=== PATIENT | male | born 1945 | race Caucasian/White ===

== ENCOUNTER → 2024-09-01 | Outpatient (CLI) | payer OTHER, SELFPAY ==
--- NOTE | 2024-09-01 16:00 | XR_ITS ---
Examination: CT chest, without intravenous contrast. Sagittal and coronal 2-D reconstructions. Exam date and time: September 01, 2024 1606 hrs. Indications: CT chest 02/11/2024 10 mm pulmonary nodule left upper lobe 3 mm pulmonary nodule lingular segment CTDI:vol (mGy) 9.99 DLP: (mGycm) 357 Technique: Multiple 3.0 mm axial sections of the chest to been obtained. Bone and lung density settings are obtained. Sagittal and coronal 2-D reconstructions have been obtained. Low dose protocols were performed. One or more of the following dose reduction techniques were used; automated exposure control, adjustment of the mA and/or KV according to patient size, use of iterative reconstruction technique. Findings: Thoracic aortic calcification no aneurysmal patient Pulmonary artery segments are not enlarged Significant calcification left main left anterior descending left circumflex coronary arteries Stable 10 mm pulmonary nodule left upper lobe Stable 3 mm pulmonary nodule lingular segment No new pulmonary nodules Scarring in the lungs bilaterally No interval pneumonia No focal liver or splenic lesions Kidneys partially visualized no hydronephrosis Moderate osteopenia Impression: Stable pulmonary nodules compared with 02/11/2024, no new pulmonary nodules
== END | disposition home or self-care (01) ==
PROVIDERS: Referring Provider Nurse Practitioner Adult Health; Visit Provider Nurse Practitioner Adult Health
DX: R91.8 Other nonspecific abnormal finding of lung field (principal)
CPT/HCPCS: 71250

== ENCOUNTER 2025-01-25 01:26 | Observation (INO) | payer MEDICARE, OTHER, SELFPAY ==
[2025-01-25] VITALS (11 sets, daily range): BP systolic 114–165; BP diastolic 77–98; PULSE 57–99; RESP 15–19; TEMP 36.1–36.6; O2SAT 93–98; BMI 20.2; BMI 20.9
--- NOTE | 2025-01-25 01:38 | PC.NURSE ---
PT BROUGHT TO ER BY AMBULANCE, EMS REPORTED PT C/O RIGHT GROIN PAIN AND SWOLLEN TESTICLE. PT SAID THAT HE IS BEEN HAVING GROIN PAIN X 1 WEEK, BUT LAST NIGHT HE STARTED TO HAVE SWELLING TO HIS RIGHT TESTICLE.
--- NOTE | 2025-01-25 01:46 | EDNOTE_ITS ---
ED Male Genitalurinary RME/HPI General Chief complaint: Urogenital-Male Stated complaint: SWOLLEN TESTICLES Time Seen by Provider: 01/25/25 02:02 Arrival date/time: 01/25/25 01:26 RME / HPI RME / HPI Narrative: See [facility] for Dr. Charles's HPI documentation. Related Data Previous Rx's ?Medication ?Instructions ?Recorded albuterol sulfate 90 mcg/actuation 2 puff inhalation Q 6H PRN 09/06/23 aerosol inhaler (Ventolin HFA) shortness of breath or wheezing #8.5 grams fluticasone propionate 115 2 puff inhalation BID #12 g romy 09/06/23 mcg-salmeterol 21 mcg/actuation HFA inhaler (Advair HFA) Allergies Allergy/AdvReac Type Severity Reaction Status Date / Time No Known Allergies Allergy Verified 01/25/25 01:58 Review of Systems Review of Systems Systems Reviewed: All systems reviewed, normal except as documented Past Medical History Social History SMOKING STATUS: Former smoker ED Exam Narrative Physical exam: See [facility] for Dr. Charles's physical exam documentation. Course Quality Measures none Orders Category Date Time Status Saline [Insert IV] NOW Care 01/25/25 01:48 Active Straight [In and Out Catheter] X1 Care 01/25/25 01:48 Active Consult to General Surgery Stat Cons 01/25/25 04:[address] abdomen pelvis wo con Stat Exams 01/25/25 01:50 Taken US testicular Stat Exams 01/25/25 01:50 Ordered BNP [B-Type Natriuretic Peptide] Stat Lab 01/25/25 02:05 Completed Bilirubin,Direct Stat Lab 01/25/25 02:05 Completed Blood Culture (Lab) Stat Lab 01/25/25 02:02 Received CBC Stat Lab 01/25/25 02:05 Completed CMP [Comprehensive Metabolic Panel] Stat Lab 01/25/25 02:05 Completed CRP [C-Reactive Protein] Stat Lab 01/25/25 02:05 Completed ESR [Sed Rate (ESR)] Stat Lab 01/25/25 02:05 Completed Lactate (Lactic Acid) Stat Lab 01/25/25 02:05 Completed Magnesium Stat Lab 01/25/25 02:05 Completed Procalcitonin Stat Lab 01/25/25 02:05 Completed UA, C/S IF [Urinalysis, C/S if Indicated] Stat Lab 01/25/25 01:51 Ordered Morphine* Inj Med 01/25/25 01:48 Discontinued 4 mg IV X1 ONE Ondansetron Inj [Zofran Inj] Med 01/25/25 01:48 Discontinued 4 mg IVP X1 ONE Vital Signs Vital signs: Vital Signs Temperature 97.9 F 01/25/25 01:37 Pulse Rate 57 L 01/25/25 01:37 Respiratory Rate 18 01/25/25 01:37 Blood Pressure 162/83 H 01/25/25 01:37 Pulse Oximetry (%) 96 01/25/25 01:37 Oxygen Delivery Method Room Air 01/25/25 01:37 Urogenital - Male MDM Narrative MDM Narrative:: This section includes all my notes and documentations, including HPI, PE, and ED course. Cheko Charles MD HPI: 79yo male BIBA from home with right scrotal pain and swelling for the last several hours. Patient has had intermittent right scrotal pain for the few days. No previous abdominal surgeries. No other complaints reported. ROS: All negative except as documented in HPI. Physical Exam: General: Alert and oriented. No acute distress when remaining still. Eyes: Conjunctivae and lids clear. ENT: No nasal congestion. Neck: Supple. Heart: RRR. Lungs: No respiratory distress. Good air movement. No rhonchi, wheezing, rales. Abdomen: Soft and nontender. Skin: Warm and dry. Neuro: Alert and oriented X 3. Genitalia: Softball sized scrotum noted. Probable right inguinal hernia but difficult exam. I reviewed EMS notes. I reviewed all diagnostic test results. My review of the CT abdomen pelvis report is large right inguinal hernia. Blood tests are unremarkable. Urine specimen pending. Scrotal ultrasound reading pending. At this point, diagnoses include: Right inguinal hernia. Treatment here included: Morphine 4 mg IV Zofran 4 mg IV Patient remained stable. I discussed the case with our general surgeon, Dr. Dover. About the presentation and exam and diagnostics and treatments here. And possible need of further care in the hospital. Will come and evaluate the patient in the ER. Cheko Charles MD Patient data External records reviewed:: [facility] previous records (Per chart review, patient has no relevant previous ED visits.) Clinical information provided by:: patient Social determinants that could affect healthcare access:: none Patient has the following chronic illnesses:: none How is presenting disease/condition affected by chronic disease/condition?: no chronic disease Evaluation data The following diagnostics were reviewed and interpreted by me:: lab results and radiology exam(s) Lab and/or radiology exams considered but not ordered:: none Interpretation Summary: I reviewed all diagnostic test results. My review of the CT abdomen pelvis report is large right inguinal hernia. Blood tests are unremarkable. Urine specimen pending. Scrotal ultrasound reading pending. Medications / Prescriptions Medications or Prescriptions considered but not ordered:: none Medication administrations:: Medication Administration History Discontinued Medications Morphine Sulfate (Morphine Sulf Inj 4 Mg/Ml Vial) 4 mg IV X1 ONE Stop: 01/25/25 01:49 Last Admin: 01/25/25 03:16 Dose: 4 mg Documented By: CVL Comments: IV LOCK AT LEFT AC, PUSHED FOR 1 MIN. Ondansetron HCl (Ondansetron Inj 2 Mg/Ml Inj 2 Ml) 4 mg IVP X1 ONE; Protocol Stop: 01/25/25 01:49 Last Admin: 01/25/25 03:14 Dose: 4 mg Documented By: CVL Morphine, Zofran Consultations Consultation(s) initiated? (list below): Yes Consultation #1 (Physician, Specialty, Details): I discussed the case with our general surgeon. About the presentation and exam and diagnostics and treatments here. And possible need of further care in the hospital. Will come and evaluate the patient in the ER. Diagnosis Urogenital Male Differential Diagnosis: urinary tract infection, acute retention of urine and inguinal hernia Most likely diagnosis given after review of the tests above:: Right inguinal hernia Admission Indicated Admission indicated?: not indicated Explain why admission is indicated or not indicated:: I discussed the case with our general surgeon. About the presentation and exam and diagnostics and treatments here. And possible need of further care in the hospital. Will come and evaluate the patient in the ER. Admission Request Was there a request for admission?: No Disposition Plan Disposition Plan: other (specify) (Signed out to Dr. Longoria at 6 AM.) Discharge Plan Prescriptions/Referrals Prescriptions/Med Rec: No Action fluticasone propion-salmeterol [Advair HFA] 115-21 mcg/actuation HFA aerosol inhaler 2 puff inhalation BID Qty: 12 0RF albuterol sulfate [Ventolin HFA] 90 mcg/actuation HFA aerosol inhaler 2 puff inhalation Q6H PRN (Reason: shortness of breath or wheezing) Qty: 8.5 0RF Referrals: Emiliano Bethea MD [Primary Care Provider] - In 1 week Problem List Clinical Impression: Right inguinal hernia Patient/Caregiver Discharge Instructions Print Language: Irish
--- NOTE | 2025-01-25 01:50 | XR_ITS ---
Examination: Testicular sonography complete Technique: Grayscale sonographic images testes, assessment arterial inflow venous outflow Doppler spectral analysis carful analysis Date and time: January 25, 2025 0350 hrs. Indications: Testicular swelling beginning 2 days ago. Findings: Right testis 4.5 cm epididymis 1.1 cm Right inguinal hernia. Arterial flow testicle. No testicular mass. Left testis 4.6 cm epididymis not visualized. Arterial flow testicle. No testicular mass. Impression: No testicular torsion or testicular mass. Right inguinal hernia
--- NOTE | 2025-01-25 01:50 | XR_ITS ---
Examination: CT abdomen and pelvis without contrast. Coronal 3-D reconstructions. Sagittal 2-D reconstructions. Date and time of exam:January 25, 2025, 0257 hrs. Indications: Swollen testicles, erythema, abdominal and testicular pain today. CTDI: vol (mGy): 6.21. DLP: (mGycm): 385. Technique: Axial images of the abdomen have been obtained, 3 mm slice thickness Intravenous contrast material has not been administered. Low dose protocols were performed. One or more of the following dose reduction techniques were used; automated exposure control, adjustment of the mA and/or KV according to patient size, use of iterative reconstruction technique. Findings: No visualized liver or splenic lesion No gallstones. No pancreatic mass. Perinephric stranding. Mild edema in the mesentery. Normal appendix. 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 Mild prostatomegaly. Right inguinal hernia containing small bowel, but no incarcerated bowel or bowel obstruction. Severe osteopenia Impression: Right inguinal hernia containing small bowel, but no incarcerated bowel or bowel obstruction
[2025-01-25 02:16] LABS: Lactate (Lactic Acid) 1.0 mMol/L (0.4-2.0)
[2025-01-25 02:23] LABS: Basophils # (Auto) 0.1 Thou/mm3 (0.0-0.2); Basophils % (Auto) 1 % (0-2.5); Eosinophils # (Auto) 1.4 Thou/mm3 (0.0-0.5); Eosinophils % (Auto) 18 % (0-10); Hematocrit 42.7 % (41.0-53.0); Hemoglobin 14.2 g/dL (13.5-16.0); Immature Granulocytes Auto 0.02 Thou/mm3 (0.00-0.00); Lymphocytes # (Auto) 2.1 Thou/mm3 (1.0-4.8); Lymphocytes % (Auto) 28 % (10-50); Mean Corpuscular HGB Conc 33.3 g/dl (31.0-37.0); Mean Corpuscular Hemoglobin 35.0 pg (25.0-35.0); Mean Corpuscular Volume 105 fL (80-100); Monocytes # (Auto) 0.5 Thou/mm3 (0.0-0.8); Monocytes % (Auto) 7 % (0-12); Neutrophils # (Auto) 3.5 Thou/mm3 (1.8-7.7); Neutrophils % (Auto) 46 % (37-80); Nucleated Red Blood Cell # 0.00 Thou/mm3 (0.00-0.00); Nucleated Red Blood Cell % 0 /100 WBC (0); RDW Standard Deviation 50.4 fL (35.1-43.9); Red Blood Count 4.06 Miln/mm3 (4.50-5.90); White Blood Count 7.6 Thou/mm3 (3.8-10.6)
[2025-01-25 02:33] LABS: B-Type Natriuretic Peptide 29 pg/mL (0-100)
[2025-01-25 02:58] LABS: Alanine Aminotransferase 27 U/L (10-49); Albumin, Serum 4.3 gm/dL (3.4-4.8); Albumin/Globulin Ratio 2.4 (1.2-2.2); Alkaline Phosphatase 96 U/L (46-116); Anion Gap 9 (7-16); Aspartate Amino Transferase 35 U/L (0-34); BUN/Creatinine Ratio 19 Ratio (12-20); Bilirubin,Direct 0.2 mg/dL (0.0-0.3); Bilirubin,Total 0.6 mg/dL (0.3-1.2); Blood Urea Nitrogen 17 mg/dL (9-23); C-Reactive Protein < 0.5 mg/dL (0.0-0.9); Calcium 9.7 mg/dL (8.3-10.6); Calcium (Corrected) 9.7 mg/dL (8.5-10.1); Carbon Dioxide 27.0 mMol/L (20.0-31.0); Chloride 104 mMol/L (98-107); Creatinine (Component) 0.9 mg/dL (0.6-1.3); Estimated Creatinine Clearance 62.9 mL/min (>60); Globulin 1.8 gm/dL (2.3-3.5); Glucose 91 mg/dL (74-106); Magnesium 2.0 mg/dL (1.6-2.6); Osmolality,Calculated 280 (275-295); Potassium 4.4 mMol/L (3.4-5.1); Procalcitonin 0.10 ng/ml (0.0-0.49); Sodium 140 mMol/L (136-145); Total Protein 6.1 gm/dL (5.7-8.2); eGFR > 60 See Note
[2025-01-25 03:01] LABS: Platelet Count 131 Thou/mm3 (140-440)
[2025-01-25 03:02] LABS: Sed Rate (ESR) 3 mm/hr (0-20)
[2025-01-25] MEDS: ONDANSETRON INJ 2 MG/ML INJ 2 ML 4 MG IVP (03:14)
[2025-01-25] MEDS: MORPHINE SULF INJ 4 MG/ML VIAL IV (03:16)
--- NOTE | 2025-01-25 03:20 | PC.NURSE ---
PT DAUGHTER INFORMED ME THAT WHEN HE CAME BACK FROM CT, SKIN TEAR AT LEFT LOWER BACK IS NOTED.
--- NOTE | 2025-01-25 04:38 | PRELIM_ITS ---
CT scan of the abdomen and pelvis without intravenous contrast (axial sections with sagittal and coronal reformats) January 25, 2025 at 0257 hours Clinical History: Scrotal edema/erythema/calor/pain. Comparison: No prior study is available for comparison. Findings: Mild atelectasis/fibrosis in bilateral lung bases. The liver, spleen, adrenal glands, pancreas and gallbladder are unremarkable. A 2.5 cm isodense left renal cyst or nodule, image 53. 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 There is fat stranding and mild lymphadenopathy in the small bowel mesentery, with lymph nodes up to 8 mm. Appendicolith without inflammation, (image 166). Nonobstructed Small bowel in a large right inguinal hernia extending into the scrotum. The urinary bladder is normal. No free intraperitoneal air or fluid. There is sigmoid diverticulosis without mucosal thickening or adjacent fat stranding to suggest diverticulitis. Bowel caliber is normal. No fluid collection or abscess. Impression: Small bowel containing right inguinal hernia extending into the scrotum, without associated bowel obstruction or mesenteric edema to suggest strangulation. Nonspecific appearance of the mesenteric root, may be acute or chronic; Consider mesenteritis or jejunitis. Report Electronically Signed By: Laz Hua 01/25/2025 4:37:58 AM [EST]
--- NOTE | 2025-01-25 06:07 | PRELIM_ITS ---
Ultrasound of the scrotum. January 25, 2025 at 0350 hours Clinical history: Edema erythema calor tenderness. Correlated CT same date. Technique: Real-time ultrasound was performed using Duplex scanning including arterial inflow, venous outflow, color and spectral Doppler analysis of both testes. Findings: Right testicle is 4.5 x 2.6 x 4.9 cm. Right epididymis is 1.1 x 0.5 x 0.6 cm. Left testicle is 4.6 x 3.9 x 4.1 cm. Left epididymis is not seen. The testicles have normal arterial flow bilaterally. Minimal bilateral hydrocele. There is bowel containing right inguinal hernia extending into the scrotum. Impression: Normal testicles. Bowel containing right inguinal hernia. Report Electronically Signed By: Laz Hua 01/25/2025 6:06:50 AM [EST]
[2025-01-25 06:17] LABS: Bilirubin,Urine Negative (Negative); Blood,Urine Negative (Negative); Clarity,Urine Clear (Clear/Hazy); Collection Type, Urine Clean Catch; Color,Urine Lt-Yellow (Lt Yel-Yel); Culture Indicated,Urine Not Indicated; Glucose, Urine Negative (Negative); Ketones,Urine Negative (Negative); Leukocyte Esterase,Urine Negative (Negative); Nitrite,Urine Negative (Negative); PH,Urine 6.0 (5.0-7.0); Protein,Urine Negative (Neg - Trace); RBC,Urine 2 /hpf (0-3); Specific Gravity,Urine 1.016 (1.001-1.035); Squamous Epithelial Cell,Urine 0 /hpf (0-5); Urobilinogen,Urine Negative mg/dL (0.0-1.0); WBC,Urine < 1 /hpf (0-5)
--- NOTE | 2025-01-25 06:19 | EKG_ITS ---
[facility] Test Date: 2025-01-25 Pat Name: ROSMERY FRANCIS Department: Room: - Gender: Male [employer] Metal: : [id number] Requested By: Cheko Newell Order Number: [id number] Reading MD: Cheko Newell Measurements Intervals [place] Rate: 66 P: 236 MA: 145 QRS: 12 QRSD: 90 T: 46 QT: 393 QTc: 412 Interpretive Statements SINUS RHYTHM WITH MARKED RHYTHM IRREGULARITY, POSSIBLE NON-CONDUCTED PAC, SA BLOCK, AV BLOCK, OR SINUS PAUSE CRITICAL TEST RESULT No previous ECG available for comparison /[id number]/[id number].pdf
--- NOTE | 2025-01-25 06:27 | PD.SURHP ---
HPI Date of Admission 01/25/2025 Chief Complaint Chief Complaint: Patient is admitted with the complaints of right inguinal hernia that is incarcerated HPI History of present illness revealed that the patient was in his usual health until yesterday when he developed large mass going down into the scrotum. His daughter who is taking care of him describes that he never had any swelling in the groin. Patient had pain and came to the emergency room and was found to have nonreducible right inguinal hernia. He received morphine. He normally go to the hospital for care. He denies any history of nausea or vomiting. 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 He also has severe peripheral neuropathy for which he is taking gabapentin. Other problem consisted of COPD for which he uses inhalers. Patient also has some prostatic symptoms with difficulty in urination Past Medical History Past Medical History CARDIAC: Positive Hypercholesterolemia; Negative Congestive Heart Failure RESPIRATORY: Positive Respiratory Disorders and Chronic Obstructive Pulmonary Disease (COPD) GENITOURINARY: Negative Renal Disease ENDOCRINE: Negative Diabetes Mellitus Type 1 or Diabetes Mellitus Type 2 Social History SMOKING STATUS: Former smoker Meds Home Medications and Allergies Home Medications ?Medication ?Instructions ?Recorded ?Confirmed ?Type acyclovir 800 mg tablet 800 mg PO Q4H 01/25/25 01/25/25 History cholecalciferol (vitamin D3) 25 25 mcg PO QDAY 01/25/25 01/25/25 History mcg (1,000 unit) capsule cyanocobalamin (B12)-cobamamide 1 joao .Route DAILY 01/25/25 01/25/25 History 5,000 mcg-100 mcg sublingual lozenge (B12) finasteride 5 mg tablet 5 mg PO QDAY 01/25/25 01/25/25 History folic acid 400 mcg tablet 400 mcg PO QDAY 01/25/25 01/25/25 History gabapentin 300 mg capsule 900 mg PO BID 01/25/25 01/25/25 History simvastatin 20 mg tablet 10 mg PO HS 01/25/25 01/25/25 History tamsulosin 0.4 mg capsule (Flomax) 0.4 mg PO HS 01/25/25 01/25/25 History Allergies Allergy/AdvReac Type Severity Reaction Status Date / Time No Known Allergies Allergy Verified 01/25/25 01:58 Exam Vital Signs Temp Pulse Resp BP Pulse Ox O2 Del Method 97.9 F 57 L 18 162/83 H 96 Room Air 01/25/25 01:37 01/25/25 01:37 01/25/25 01:37 01/25/25 01:37 01/25/25 01:37 01/25/25 01:37 Narrative Exam Physical examination revealed 79-year-old fragile older man who appears older than his stated age of 79. His vital signs are normal other than mildly elevated systolic blood pressure Constitutional Constitutional: mild distress Routine Neck Exam Comments: Within normal limits Routine Respiratory Exam Comments: Diminished breath sounds on both sides due to diminished respiratory excursions. No rales or rhonchi heard. Routine Abdominal Exam Comments: Slightly distended but not tender. Patient has a large right inguinoscrotal hernia which is difficult to reduce. There is slight redness around the scrotum. Routine Rectal Exam Comments: Deferred Routine Exam Comments: Patient has an indwelling catheter Routine Extremities Exam Comments: Neuropathy in both the sides making him weak to stand up and walk Results Results: Laboratory Laboratory Narrative: Patient's laboratory work are within normal limits Results: Imaging Imaging narrative: CT scan showed large right inguinal hernia with small bowel loops in the scrotum. 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 The intestines are in the contents of the hernia which could be reduced and mesh will be used. Because of the difficulty in reducing the hernia I suggested operative intervention now and they are agreeable. The risk of the procedure including wound infection hematoma complication of COPD which may be exacerbated were all discussed with the daughter. They are agreeable. Quality Measures Quality Measures none Advance care planning discussed with:: child (Daughter)
[2025-01-25 06:36] LABS: INR 1.1 (0.9-1.3); Partial Thromboplastin Time 22.4 Seconds (22.0-36.0); Prothrombin Time 12.0 Seconds (9.0-12.2)
[2025-01-25] MEDS: SODIUM CHLORIDE 0.9% 1000 ML 1,000 ML 125 ML IV (06:39)
--- NOTE | 2025-01-25 08:21 | SUR.OPER ---
Patient noted to have existing extensive red,burned and blistered skin on mid back. Per daughter (Lacy) the patient applies heating pad at home and forgets to remove the pad causing skin rodriguez. Pictures taken in OR-1 and placed in chart.
--- NOTE | 2025-01-25 09:30 | SUR.PHASEI ---
09 Patient arrived to recovery resting comfortably in [facility], on oxygen 4L via nasal cannula, breathing unlabored, vital signs stable, denies pain, dressing intact to right groin; sutures, adaptic, gauze, medipore tape, no bleeding noted, post spinal anesthesia assessment via ice; patient has dermatome sensation at Q12-dibzyhbvl, will continue to montior, patient able to move bilateral lower extremities, report received from Ac WILLIAM and Reji WILLIAM
--- NOTE | 2025-01-25 09:32 | ESOP_ITS ---
Date of Procedure 01/25/25 Pre Op Diagnosis Incarcerated right inguinal hernia Post Op Diagnosis Same with incarceration of the small bowel in the hernial sac but no strangulation Procedure Repair of the right indirect inguinal hernia with high ligation of the sac and placement of 2 x 4 Marlex mesh for closing the internal ring Findings Patient was found to have large sac containing small bowel which was in the scrotum. The floor of the inguinal canal appeared reasonably strong but she had a large defect at the internal ring. Procedure Description After the patient was brought to the operating room spinal anesthesia was given by the anesthesiologist. Patient was kept in supine position and his lower abdomen and groin right groin was washed with ChloraPrep solution and draped in a sterile manner. Timeout was performed. Then I made a standard right groin incision for about 6 cm in length and external oblique was incised. The hernia was reduced by pressing on the scrotum. Then the cord structures along with the hernial sac was encircled around a [place] drain. I have a considerable time the cord structures from the hernial sac. Then the entire sac was removed and then it was suture-ligated with 2-0 chromic. The small intestines were found to be in the hernial sac measuring at least 6 inches to 8 inches. Then I palpated the inguinal floor which appeared to be reasonably strong. However the patient had large opening at the internal ring which allowed this indirect inguinal hernia. I used 2 x 4 Marlex mesh and attached it medially to the pubic tubercle and it was attached superiorly to the internal oblique and inferiorly to the shelving edge of the external oblique. I thus created the anterior floor of the inguinal region and I split the mesh and tucked underneath the external oblique after inspecting the cord structures. In this process I closed the internal ring. I placed Prolene stitches to approximate the mesh to the edges of the defect. I placed 2 sutures laterally with 2-0 Prolene and then the external oblique was closed with 2-0 Vicryl. Subcutaneous tissues closed with 3-0 chromic and 3-0 plain in 2 layers. I injected large amounts of Marcaine half percent plain. Skin was closed with 4-0 Monocryl and dressing was applied with Adaptic and 4 x 4 gauze. Patient tolerated procedure well Anesthesia spinal Pathology / specimen None IVF Infused 1,000 Estimated Blood Loss 30 Disposition PACU Surgeon Audie Dover MD Surgical Staff Operation Date: 01/25/25 07:45 Case Staff CAR [employer]ARD SUPERVISOR: Tacho Ramirez RN First Assistant: Karis Horn
--- NOTE | 2025-01-25 09:35 | SUR.PHASEI ---
[id number] Reji RN at bedside explaining to this staff writer regard patient pre-existing wound to back, assessed wound together, discoloration to large portion of back from using heating pad at home for extended amount of years, skin blistered noted per Reji RN from this morning, adaptic dressing to back
--- NOTE | 2025-01-25 09:35 | SUR.PHASEI ---
[id number] Reji RN at bedside explaining to this account underwriter regard patient pre-existing wound to back, assessed wound together, discoloration to large portion of back from using heating pad at home for extended amount of years, skin tear noted per Reji WILLIAM from this morning, adaptic dressing to back
--- NOTE | 2025-01-25 10:31 | SUR.PHASEI ---
1020 Report given to Petra WILLIAM, patient meets discharge criteria from recovery, awake and talking with staff, on oxygen 4L via nasal cannula, breathing unlabored, vital signs stable, denies pain, dressing intact; no bleeding noted, urinary catheter in place with leg secure, draining to gravity. 1031 Patient transported via gurney to room without incidnent, Kathryn WILLIAM assisted with transferring patient from rlyons to bed, Mallorie wound nurse, Petra and TREVOR arrived in room, Mallorie began her wound consult, staff with patient when this copy writer left patient room
[2025-01-25] MEDS: SODIUM CHLORIDE 0.9% 1000 ML 1,000 ML 50 ML IV (13:21)
--- NOTE | 2025-01-25 16:07 | PC.PT ---
PT approached patient at 15:30 for PT eval. Patient's daughter was at bedside and told PT that patient is at baseline very immobile and dependent on her. Patient's daughter reported she is the caregiver for the patient. Patient's daughter told PT that she has everything under control and does not want him to work with PT at this time. Patient's daughter reports she has all DME at home to be successful and is asking that PT cancel the evaluation. RN made aware. Will cancel PT eval at this time.
[2025-01-25] MEDS: GABAPENTIN 300 MG CAPSULE 900 MG PO (21:24)
[2025-01-25] MEDS: ATORVASTATIN CALCIUM 10 MG TABLET 5 MG PO (21:24)
[2025-01-25] MEDS: FINASTERIDE 5 MG TABLET PO (21:24)
[2025-01-25] MEDS: TAMSULOSIN HCL 0.4 MG CAPSULE PO (21:24)
[2025-01-26] VITALS: BP 164/70; PULSE 76; RESP 18; TEMP 36.2; O2SAT 96
[2025-01-26] MEDS: MORPHINE SULF INJ 4 MG/ML VIAL 3 MG IVP ×2 (00:53→06:06)
[2025-01-26 04:00] VITALS: BP 135/79; PULSE 67; RESP 19; TEMP 36.1; O2SAT 95
[2025-01-26 05:50] LABS: Basophils # (Auto) 0.0 Thou/mm3 (0.0-0.2); Basophils % (Auto) 0 % (0-2.5); Eosinophils # (Auto) 0.6 Thou/mm3 (0.0-0.5); Eosinophils % (Auto) 6 % (0-10); Hematocrit 42.4 % (41.0-53.0); Hemoglobin 14.2 g/dL (13.5-16.0); Immature Granulocytes Auto 0.02 Thou/mm3 (0.00-0.00); Lymphocytes # (Auto) 1.6 Thou/mm3 (1.0-4.8); Lymphocytes % (Auto) 18 % (10-50); Mean Corpuscular HGB Conc 33.5 g/dl (31.0-37.0); Mean Corpuscular Hemoglobin 35.5 pg (25.0-35.0); Mean Corpuscular Volume 106 fL (80-100); Monocytes # (Auto) 0.9 Thou/mm3 (0.0-0.8); Monocytes % (Auto) 10 % (0-12); Neutrophils # (Auto) 5.8 Thou/mm3 (1.8-7.7); Neutrophils % (Auto) 66 % (37-80); Nucleated Red Blood Cell # 0.00 Thou/mm3 (0.00-0.00); Nucleated Red Blood Cell % 0 /100 WBC (0); Platelet Count 124 Thou/mm3 (140-440); RDW Standard Deviation 51.7 fL (35.1-43.9); Red Blood Count 4.00 Miln/mm3 (4.50-5.90); White Blood Count 8.8 Thou/mm3 (3.8-10.6)
[2025-01-26] MEDS: SODIUM CHLORIDE 0.9% 1000 ML 1,000 ML 50 ML IV (05:57)
[2025-01-26 07:00] VITALS: PULSE 82; RESP 18; O2SAT 95
[2025-01-26 07:29] VITALS: BP 135/75; PULSE 76; RESP 19; TEMP 36.2; O2SAT 94
[2025-01-26] MEDS: GABAPENTIN 300 MG CAPSULE 900 MG PO (08:31)
[2025-01-26] MEDS: FINASTERIDE 5 MG TABLET PO (08:31)
--- NOTE | 2025-01-26 09:03 | PD.SURPROG ---
Documentation for date of: 01/26/25 Subjective Subjective Brief History: History of present illness revealed that the patient was in his usual health until yesterday when he developed large mass going down into the scrotum. His daughter who is taking care of him describes that he never had any swelling in the groin. Patient had pain and came to the emergency room and was found to have nonreducible right inguinal hernia. He received morphine. He normally go to the hospital for care. He denies any history of nausea or vomiting. 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 He also has severe peripheral neuropathy for which he is taking gabapentin. Other problem consisted of COPD for which he uses inhalers. Patient also has some prostatic symptoms with difficulty in urination Narrative: The patient is feeling better and required pain medicine around 1:00 in the morning. His urine output is adequate Exam Vital Signs Temp Pulse Resp BP Pulse Ox O2 Del Method O2 Flow Rate 97.2 F 76 19 135/75 H 94 L Room Air 3 01/26/25 07:29 01/26/25 07:29 01/26/25 07:29 01/26/25 07:29 01/26/25 07:29 01/26/25 07:29 01/26/25 07:00 His vital signs are normal Routine Abdominal Exam Comments: Abdominal examination is negative on the right groin is dry Results Results: Laboratory Laboratory Narrative: Laboratory results are normal Assessment & Plan Assessment Additional comments: Impression: Stable course following incarcerated inguinal hernia repair Plan Plan: We shall increase ambulation DC Jerome catheter Discharge him today. PROCEDURES: Procedures Repair of the right indirect inguinal hernia with high ligation of the sac and placement of 2 x 4 Marlex mesh for closing the internal ring
--- NOTE | 2025-01-26 11:33 | PC.SS ---
Patient is alert/oriented. Patient was able to verify demographics. Patient is hard of hearing. Daughter at bedside. Patient had surgery yesterday. Daughter states patient resides with her. Daugher will take patient home today. Patient is independent with ADL's. No DME. PCP: Nilam CAMARGO with Dr. Pall. wong medical decision maker: Daughter, Lacy Davis,
== END 2025-01-26 11:11 | disposition home or self-care (01) ==
LOC: SERX 06:37 → S2EX 06:50 → S3NX 11:03
PROVIDERS: Admitting Provider Surgery; Emergency Provider Emergency Medicine; PCP Internal Medicine; Referring Provider Surgery; Visit Provider Surgery
PROC: (CPT 49507; principal; 2025-01-25 07:45)
DX: K40.30 Unilateral inguinal hernia, with obstruction, without gangrene, not specified as recurrent (principal); G62.9 Polyneuropathy, unspecified; J44.9 Chronic obstructive pulmonary disease, unspecified
CPT/HCPCS: 49507; 36415; 74176; 76870; 80053; 81001; 82248; 83605; 83735; 83880; 84145; 85025; 85610; 85652; 85730; 86140; 87040; 87077; 87186; 93005; 96361; 96374; 96375; 97161; 99284; A4217; A4314; A4649; C1781; G0378; J2270; J2274; J2405; J2704; J3010; J3490; J7030; A9270; J1596